=== PATIENT | female | born 1985 | race Caucasian/White ===

== ENCOUNTER 2020-05-20 06:22 | Inpatient (IN) | payer BC ==
[2020-05-20 06:58] LABS: APPEARANCE,URINE CLEAR; BILIRUBIN,URINE NEGATIVE (NEGATIVE); COLOR,URINE YELLOW; GLUCOSE, URINE NEGATIVE (NEGATIVE); KETONES,URINE NEGATIVE (NEGATIVE); LEUKOCYTE ESTERASE,URINE NEGATIVE (NEGATIVE); NITRITE,URINE NEGATIVE (NEGATIVE); PROTEIN,URINE NEGATIVE (NEGATIVE); URINE SPECIFIC GRAVITY 1.013; UROBILINOGEN,URINE NEGATIVE mg/dL (<2.0)
[2020-05-20 07:29] LABS: URINE AMPHETAMINES SCREEN NEGATIVE; URINE BARBITURATES SCREEN NEGATIVE; URINE BENZODIAZEPINES SCREEN NEGATIVE; URINE COCAINE SCREEN NEGATIVE; URINE MARIJUANA (THC) SCREEN NEGATIVE; URINE METHADONE SCREEN NEGATIVE; URINE PHENCYCLIDINE SCREEN NEGATIVE
[2020-05-20] MEDS ORDERED: RINGERS SOLUTION,LACTATED 1,000 ML IV ONE (09:02)
--- NOTE | 2020-05-20 09:15 | Admission Physical ---
Datetime Report Generated by CPN: 05/20/2020 09:14 CURRENT ADMISSION Hx Assessment: The History has been Reviewed and is Current Chief Complaint: Uterine Contractions Chief Complaint Other: Contractions every 3-4 minutes increasing in pain Admit Impression : Term, Intrauterine ; Active Labor Admit Plan: Admit to Unit; Initiate Labor Protocol ALLERGIES Medication Allergies: No Medication Allergies: No Known Allergies (06/23/2012) Latex: No Latex Allergies Food Allergies: n/a Environmental Allergies: n/a OBSTETRICAL HISTORY EDC: 05/21/2020 00:00 : 2 Para: 1 Term: 0 : 0 SAB: 0 IAB: 0 Ectopic: 0 Livin Cesareans: 0 VBACs: 0 Multiple Births: 0 Gestational Diabetes: No Rh Sensitization: No Incompetent Cervix: No MARIA ELENA: No Infertility: No ART Treatment: No Uterine Anomaly: No IUGR: No Hx Previous C/S: No Macrosomia: No Hx Loss/Stillborn: No PIH: No Hx : No Placenta Previa/Abruption: No Depression/PP Depression: Yes PTL/PROM: No Post Hemorrhage: No Current Procedures: Ultrasound Obstetrical History Comments: 06/22/2011 G2- current SEE RECORDS Alcohol: No Marijuana : No Cocaine: No Other Illicit Drugs: No Cigarettes: Never Smoker. 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, ASCUS pap INFECTIOUS HISTORY Gonorrhea: No Genital Herpes: No Chlamydia: No Tuberculosis: No Syphilis: No Hepatitis: No HIV/AIDS Exposure: No Rash or Viral Illness: No HPV: Yes PHYSICAL EXAM General: Normal HEENT: Normal Neurologic: Normal Thyroid: Normal Heart: Normal Lungs: Normal Breast: Normal Back: Normal Abdomen: Normal Genitourinary Exam: Normal Extremities: Normal DTRs: Normal Pelvic Type: Adequate Vital Signs: Reviewed; Within Normal Limits VAGINAL EXAM Dilatation: 4 Effacement: 100 Station: -1 Contraction Comments: Q 3-4 MINUTES MEMBRANES Pooling: Negative Membranes: Intact FETUS A EGA: 39.6 Monitoring: External US FHR- Baseline: 130 Variability: Moderate 6-25bpm Accelerations: 15X15 Decelerations: None FHR Category: Category I Admit Comment: at 39.6 wks EGA in active labor -Admit to LDR -NPO and IVFs: LR at 150 cc/hr after a 1 liter bolus -CEFM and [place] -GBS negative -Hx of , Plan for vaginal delivery PLANS FOR LABOR AND DELIVERY Labor and Delivery: None Pain Management: Natural Feeding Preference: Breast Benefit of Breast Feed Discussed: Yes Circumcision: Yes INFORMED CONSENT Informed Consent Obtained: Vaginal Delivery; Section Delivery; Vacuum/Forceps Assist; Risks, Benefits and Alternatives Discussed Signature: with User ID: Lula : with User ID: [email or web address]
[2020-05-20 09:40] LABS: ABSOLUTE LYMPHOCYTES (AUTO) 0.8 10^3/uL (0.5-4.7); ABSOLUTE MONOCYTES (AUTO) 0.3 10^3/uL (0.1-1.4); ABSOLUTE NEUT (AUTO) 6.1 10^3/uL (1.7-8.2); BASOPHILS % (AUTO) 0.4 % (0-2); EOSINOPHILS % (AUTO) 0.1 % (0-6); HEMATOCRIT 33.9 % (36.0-47.0); LYMPHOCYTES % (AUTO) 11.1 % (13-45); MEAN CORPUSCULAR HEMOGLOBIN 30.4 pg (27.0-33.4); MEAN CORPUSCULAR HGB CONC 35.4 g/dL (32.0-36.0); MEAN CORPUSCULAR VOLUME 86 fl (80-97); MONOCYTES % (AUTO) 3.6 % (3-13); PLATELET COUNT 170 10^3/uL (150-450); RED BLOOD COUNT 3.95 10^6/uL (3.72-5.28); RED CELL DISTRIBUTION WIDTH 14.3 % (11.5-14.0); SEGMENTED NEUTROPHILS % (AUTO) 84.8 % (42-78); TOTAL CELLS COUNTED % (AUTO) 100 %; WHITE BLOOD COUNT 7.2 10^3/uL (4.0-10.5)
[2020-05-20] MEDS ORDERED: OXYTOCIN 10 UNIT/ML VIAL ONE (09:48)
[2020-05-20] MEDS ORDERED: LIDOCAINE 1% INJ-PF (10 MG/ML) 30 ML SDV ONE (09:48)
[2020-05-20] MEDS ORDERED: MISOPROSTOL 0.2 MG TABLET ONE (09:48)
[2020-05-20] MEDS ORDERED: OXYTOCIN/0.9 % SODIUM CHLORIDE 30 UNIT/500 ML RTUINJ ONE (09:48)
[2020-05-20] MEDS ORDERED: MAGNESIUM HYDROXIDE SUSP 30 ML UDCUP PO PRN (11:57)
[2020-05-20] MEDS ORDERED: MAG HYDROX/AL HYDROX/SIMETH SUSP 30 ML UDCUP PO PRN (11:57)
[2020-05-20] MEDS ORDERED: ZOLPIDEM TARTRATE 5 MG TABLET PO PRN (11:57)
[2020-05-20] MEDS ORDERED: ACETAMINOPHEN 325 MG TABLET PO PRN (11:57)
[2020-05-20] MEDS ORDERED: GLYCERIN/WITCH HAZEL LEAF 1 EACH MED..WIPE TP PRN (11:57)
[2020-05-20] MEDS ORDERED: OXYTOCIN/0.9 % SODIUM CHLORIDE 30 UNIT/500 ML RTUINJ IV PRN (11:57)
[2020-05-20] MEDS ORDERED: DIPHENHYDRAMINE HCL 25 MG CAPSULE PO PRN (11:57)
[2020-05-20] MEDS ORDERED: BENZOCAINE/MENTHOL AEROSOL SPRAY 56 ML TOP PRN (11:57)
[2020-05-20] MEDS ORDERED: MEASLES,MUMPS&RUBELLA VACC/PF 0.5 ML VIAL SUBCUT PRN (11:57)
[2020-05-20] MEDS ORDERED: DIPH/PERTUSS(ACELL)/TETANUS VAC/PF 0.5 ML SYR (>=10YO) IM PRN (11:57)
[2020-05-20] MEDS ORDERED: VARICELLA VACC/PF (1350 UNIT/0.5 ML) 0.5 ML VIAL SUBCUT PRN (11:57)
[2020-05-20] MEDS ORDERED: FAMOTIDINE 20 MG TABLET PO PRN (11:57)
[2020-05-20] MEDS ORDERED: PSEUDOEPHEDRINE HCL 30 MG TABLET PO PRN (11:57)
[2020-05-20] MEDS ORDERED: ACETAMINOPHEN WITH CODEINE #3 TABLET PO PRN ×2 (11:57)
[2020-05-20] MEDS ORDERED: ACETAMINOPHEN 650 MG SUPP.RECT PR PRN (11:57)
[2020-05-20] MEDS ORDERED: DIBUCAINE 1% OINTMENT 28 GM TP PRN (11:57)
[2020-05-20] MEDS ORDERED: IBUPROFEN 800 MG TABLET ONE (12:00)
[2020-05-20] MEDS ORDERED: BENZOCAINE/MENTHOL AEROSOL SPRAY 56 ML ONE (12:46)
--- NOTE | 2020-05-20 14:24 | Delivery Summary ---
Del Sum A-C Datetime Report Generated by CPN: 05/20/2020 14:23 DELIVERY PERSONNEL DELIVERY PERSONNEL: [id number] Delivery Doctor:: Mona Bravo CNM Labor and Delivery Nurse:: Josette Mari RN Nursery Nurse:: Caitlyn Gamble RN Card Tender/FLATTENING MACHINE OPERATOR: Ene Sanchez, ST MATERNAL INFORMATION Delivery Anesthesia: None Medications After Delivery: Pitocin 30 Units in 500ml NS/D5W Delivery QBL: 100 Maternal Complications: None Provider Comments: Called to patients room as she was complete and +2 station. Pushed through 10-15 minutes of contractions and viable male delivered over intact perineum. After delivery of the head, the shoulders were delayed with a shoulder dystocia approximately 1 minute. Mayda and suprapubic pressure used to relieve dystocia. THe rest of the body followed easily. Cord clamping delayed for 30 seconds as infant was vigorous. After cord doubly clamped and cut the infant was placed on Mother's chest. BOth infant and Mother stable LABOR SUMMARY EDC: 05/21/2020 00:00 No. Babies in Womb: 1 Attempted: No Labor Anesthesia: None LABOR INFORMATION Reason for Induction: Not Applicable Onset of Labor: 05/20/2020 00:00 Complete Dilatation: 05/20/2020 10:21 Oxytocin: N/A Group B Beta Strep: negative Steroids Given: None Reason Steroids Not Administered: Not Applicable MEMBRANES Membranes Rupture Method: Artificial Rupture of Membranes: 05/20/2020 10:31 Length of Rupture (hr): 1.18 Amniotic Fluid Color: Clear Amniotic Fluid Amount: Small Amniotic Fluid Odor: Normal STAGES OF LABOR Stage 1 hr: 10 Stage 1 min: 21 Stage 2 hr: 1 Stage 2 min: 21 Stage 3 hr: 0 Stage 3 min: 5 Total Time in Labor hr: 11 Total Time in Labor min: 47 VAGINAL DELIVERY Episiotomy: None Laceration #1: None Laceration Repair: Not Applicable Sponge Count Correct: Yes Sharps Count Correct: Yes CSECTION DELIVERY Primary Indication: N/A Secondary Indication: N/A CSection Incidence: N/A Labor: N/A Elective: N/A CSection Incision: N/A BABY A INFORMATION Infant Delivery Date/Time: 05/20/2020 11:42 Method of Delivery: Vaginal Nurse Controlled Delivery: No Born in Route : No : N/A Forceps: N/A Vacuum Extraction: N/A Shoulder Dystocia : Yes SHOULDER DYSTOCIA BABY A Delivery of Head: 05/20/2020 11:41 Time Head to Delivery : 1.0 1st Intervention to Resolve: Gentle Attempt at Traction, Assisted by Maternal Expulsive Efforts 2nd Intervention to Resolve: McRobert's Maneuver 3rd Intervention to Resolve: Suprapubic Pressure Verify NO Fundal Pressure: No Fundal Pressure Applied Arm Under Symphisis at Del: Right PRESENTATION/POSITION BABY A Presentation: Cephalic Cephalic Presentation: Vertex Vertex Position: Left Occipital Anterior Breech Presentation: N/A PLACENTA INFORMATION BABY A Placenta Delivery Time : 05/20/2020 11:47 Placenta Method of Delivery: Spontaneous Placenta Status: Delivered SCORES BABY A Heart Rate 1 min: >100 bpm Resp Effort 1 min: Slow, Irregular Reflex Irritability 1 min: Cough or Sneeze or Pulls Away Muscle Tone 1 min: Active Motion Color 1 min: Blue/Pale Resuscitation Effort 1 min: Tactile Stimulation SCORE 1 MIN: 7 Heart Rate 5 min: >100 bpm Resp Effort 5 min: Slow, Irregular Reflex Irritability 5 min: Cough or Sneeze or Pulls Away Muscle Tone 5 min: Active Motion Color 5 min: Body Price, Extremities Blue Resuscitation Effort 5 min: Tactile Stimulation; Oxygen SCORE 5 MIN: 8 INFANT INFORMATION BABY A Gestational Age at Delivery: 39.6 Gestational Status: Full Term- 39- 40.6 Weeks Infant Outcome : Liveborn Infant Condition : Stable Infant Sex: Male IDENTIFICATION BABY A Infant Verification Date/Time: 05/20/2020 12:15 ID Band Number: [id number] Mother's Name Verified: Yes Infant RN Verifying Infant: Mukesh Duran RN Additional Verifying Personnel: Alejandro Mari RN WEIGHT/LENGTH BABY A Birthweight (gm): 3782 Infant Weight (lb): 8 Infant Weight (oz): 5 Infant Length (in): 21.00 Length (cm): 53.34 CORD INFORMATION BABY A No. Cord Vessels: 3 Nuchal Cord : N/A Cord Blood Taken: Yes-For Storage (Mom's Blood type +) Suction: Mouth; Nose ASSESSMENT BABY A Complications: Shoulder Dystocia Physical Findings at Delivery: Bruising Physical Findings- Other: facial bruising Infant Respirations: Appears Normal; Sternal Retractions Skin to Skin: Yes Skin to Skin Time (min): 120 Fiberglass Pipe Covering Supervisor/ALS Called : No Care By: Kayleigh Morgan RN Transferred To: Remains with Mother BABY B INFORMATION : N/A SIGNATURES Signature: with User ID: Lame : with User ID: Lula
--- NOTE | 2020-05-20 14:24 | Birth Certificate Data ---
Cert Data Datetime Report Generated by CPN: 05/20/2020 14:23 CERTIFICATE DATA Delivery Provider: Mona Bravo CNM (05/20/2020 07:07:Josette Mari RN) 47a. Care: Yes (05/20/2020 07:07:Josette Mari RN) 47b. Date of First Visit: 11/28/2019 00:00 (05/20/2020 07:07:Josette Mari RN) 47c. Date of Last Visit: 05/13/2020 00:00 (05/20/2020 07:07:Josette Mari RN) 47d. Number of Visits: 9 (05/20/2020 07:07:Josette Mari RN) 48a. Number of Prev Live Births: 1 (05/20/2020 07:07:Josette Mari RN) 48b. Now Livin (05/20/2020 07:07:Josette Mari RN) 48c. Live Births Now : 0 (05/20/2020 07:07:QS system process) 48d. Date of Last Live : 06/22/2012 00:00 (05/20/2020 07:07:Josette Mari RN) 48e. Losses: 0 (05/20/2020 07:07:Josette Mari RN) RISK FACTORS IN THIS 49a. Diabetes: No (05/20/2020 07:07:Josette Mari RN) 49b. Hypertension: No (05/20/2020 07:07:Josette Mari RN) 49c. Previous Births: 0 (05/20/2020 07:07:Josette Mari RN) 49d. Stillborns: No (05/20/2020 07:07:Josette Mari RN) 49d. IUGR: No (05/20/2020 07:07:Josette Mari RN) 49e. Infertility Treatment: No (05/20/2020 07:07:Josette Mari RN) 49f. Previous Cesareans: 0 (05/20/2020 07:07:Josette Mari RN) Mother's Height 50b. Height Inches: 66 (05/20/2020 14:15:QS system process) Mother's Weight 51a. Pre- Weight (lbs): 150 (05/20/2020 07:07:Josette Mari RN) 51b. Weight at Delivery (lbs): 169 (05/20/2020 14:15:QS system process) Infections Present/Treated 53a. Gonorrhea: No (05/20/2020 07:07:Josette Mari RN) Results this Hospital Visit : Negative (05/20/2020 07:07:Josette Mari RN) 53b. Syphilis: No (05/20/2020 07:07:Josette Mari RN) 53c. Chlamydia: No (05/20/2020 07:07:Josette Mari RN) Results this Hospital Visit: Negative (05/20/2020 07:07:Josette Mari RN) 53d. Hepatitis B: No (05/20/2020 07:07:Josette Mari RN) Results this Hospital Visit: Negative (05/20/2020 07:07:Josette Mari RN) 53e. Hepatitis C: Negative (05/20/2020 07:07:Josette Mari RN) 53h. Mother Tested for HBsAG: Yes (Annotations: Data stored by Angy on behalf of user) (05/20/2020 07:07:Josette Mari RN) 53j. Test Result: Negative (05/20/2020 07:07:Josette Mari RN) Obstetric Procedures 54a, b, c. Obstetric Procedures: Ultrasound (05/20/2020 07:07:Josette Mari RN) Cigarette Smoking Cigarette Smoking: Never Smoker. [id number] (05/20/2020 07:07:Josette Mari RN) Onset of Labor 56a. PROM >12 Hrs: 1.18 (05/20/2020 07:07:QS system process) 56b. Precipitous Labor <3 Hrs: 11 (05/20/2020 07:07:QS system process) 56c. Prolonged Labor > 20 Hrs: 11 (05/20/2020 07:07:QS system process) 57a. Induction of Labor: N/A (05/20/2020 07:07:Josette Mari RN) 57c. Non-Vertex Presentation A: Vertex (05/20/2020 07:07:Josette Mari RN) 57d. Steroids - Lung Mat: None (05/20/2020 07:07:Josette Mari RN) 57d. Steroids - Lung Mat: Not Applicable (05/20/2020 07:07:Josette Mari RN) 57g. Moderate/Heavy Meconium: Clear (05/20/2020 10:30:Josette Mari RN) 57h. Intolerance of Labor: N/A (05/20/2020 07:07:Josette Mari RN) : N/A (05/20/2020 07:07:Josette Mari RN) 57i. Epidural/Spinal Anesthesia: None (05/20/2020 07:07:Josette Mari RN) Method of Delivery 58a. Forceps - Unsuccessful A: N/A (05/20/2020 07:07:Josette Mari RN) 58b. Vacuum - Unsuccessful A: N/A (05/20/2020 07:07:Josette Mari RN) 58c. Presentation at 58c. Presentation at - A : Vertex (05/20/2020 07:07:Josette Mari RN) 58c. Presentation at - A : N/A (05/20/2020 07:07:Josette Mari RN) 58c. Presentation at - A : Cephalic (05/20/2020 07:07:Josette Mari RN) Final Route and Method of Del 58d. Baby A Route/Delivery: Vaginal (05/20/2020 11:42:Josette Mari RN) 58e. Trial of Labor Attempted: No (05/20/2020 07:07:Josette Mari RN) 58e. Trial of Labor Attempted A: N/A (05/20/2020 07:07:Josette Mari RN) 58e. Trial of Labor Attempted B: N/A (05/20/2020 07:07:Josette Mari RN) Maternal Morbidity 59b. 3rd or 4th Degree Lacs: None (05/20/2020 07:07:Loretta Licona MD) 59b. 3rd or 4th Degree Lacs: N/A (05/20/2020 07:07:Josette Mari RN) Birthweight Baby A: 3782 (05/20/2020 07:07:Josette Mari RN) 60a. Pounds : 8 (05/20/2020 07:07:QS system process) 60b. Ounces: 5 (05/20/2020 07:07:QS system process) 61. GA at Delivery Baby A: 39.6 (05/20/2020 07:07:Josette Mari RN) : Full Term- 39- 40.6 Weeks (05/20/2020 07:07:QS system process) 62a. 5 Minute Baby A: 8 (05/20/2020 07:07:QS system process)
[2020-05-20] MEDS: FERROUS SULFATE 325 MG TABLET PO SCH (18:21)
[2020-05-20] MEDS: DOCUSATE SODIUM 100 MG CAPSULE PO SCH (18:22)
[2020-05-20] MEDS: IBUPROFEN 800 MG TABLET PO SCH ×2 (18:22→21:36)
[2020-05-21] MEDS: IBUPROFEN 800 MG TABLET PO SCH ×2 (06:54→13:04)
[2020-05-21 08:58] LABS: HEMATOCRIT 31.4 % (36.0-47.0); HEMOGLOBIN 11.1 g/dL (12.0-15.5); MEAN CORPUSCULAR HEMOGLOBIN 30.9 pg (27.0-33.4); MEAN CORPUSCULAR HGB CONC 35.4 g/dL (32.0-36.0); MEAN CORPUSCULAR VOLUME 87 fl (80-97); PLATELET COUNT 137 10^3/uL (150-450); RED CELL DISTRIBUTION WIDTH 14.4 % (11.5-14.0); WHITE BLOOD COUNT 9.1 10^3/uL (4.0-10.5)
[2020-05-21] MEDS: DOCUSATE SODIUM 100 MG CAPSULE PO SCH (09:14)
[2020-05-21] MEDS: FERROUS SULFATE 325 MG TABLET PO SCH (09:14)
[2020-05-21 09:16] VITALS: BP 109/70
--- NOTE | 2020-05-21 09:54 | PDOC PROGRESS REPORT ---
Subjective-OB Progress Note for:: 05/21/20 Subjective: Pt doing well, no concerns. She reports light bleeding, reg diet and voiding w/o difficulty. She would like to go home today. Physical Exam (OB) Vital Signs: Temp Pulse Resp BP Pulse Ox 98.4 F 56 L 20 109/70 100 05/21/20 07:37 05/21/20 07:37 05/21/20 07:37 05/21/20 07:37 05/21/20 07:37 Intake & Output 05/20/20 05/21/20 05/22/20 06:59 06:59 06:59 Intake Total 500 Output Total 1325 Balance -825 Weight 76.6 kg - General General Appearance: Appears well - Maternal Morbidity 59. Maternal Morbidity (serious complications experinced by the mother associated with labor and delivery: None of the above - Lochia Lochia Amount: Scant < 10 ml Lochia Color: Rubra/Red - Abdomen Description: Firm, Soft Hernia Present: No Fundal Description: Firm, Midline Fundal Height: u/u - u/2 Objective-Diagnostic Laboratory: 05/21/20 07:55 05/20/20 05/21/20 09:22 07:55 WBC 9.1 RBC 3.60 L Hgb 11.1 L Hct 31.4 L MCV 87 MCH 30.9 MCHC 35.4 RDW 14.4 H Plt Count 137 L Blood Type A POSITIVE Antibody Screen NEGATIVE Assessment and Plan(PN) - Assessment and Plan (1) Vaginal delivery Is this a current diagnosis for this admission?: Yes - Time Spent with Patient Time with patient: Less than 15 minutes Medications reviewed and adjusted accordingly: Yes - Disposition Anticipated Discharge Disposition: Home, Self Care Anticipated Discharge Timeframe: within 24 hours
--- NOTE | 2020-05-21 09:56 | PDOC DISCHARGE SUMMARY ---
Impression - Admit/DC Date/PCP Admission Date/Primary Care Provider: 05/20/20 09:10 FELISA WILL MD Discharge Date: 05/21/20 - Discharge Diagnosis (1) Vaginal delivery Is this a current diagnosis for this admission?: Yes - Additional Information Resuscitation Status: Full Code Discharge Diet: Regular Discharge Activity: Balance Activity w/Rest, Pelvic Rest Referrals: FELISA WILL MD [Primary Care Provider] - Prescriptions: Ibuprofen [Motrin 800 mg Tablet] 800 mg PO Q8HP PRN #60 tablet PRN Reason: Home Medications: Pnv W-O Ca No5/Fe Fumarate/FA [-U Multiple Vitamin Capsule] 1 tab PO DAILY 06/22/12 Ibuprofen [Motrin 800 mg Tablet] 800 mg PO Q8HP PRN #60 tablet 05/21/20 HPI Reason(s) for Admission: Onset of Labor Procedures: NST Intrapartum Procedure(s): Spontaneous Vaginal Delivery Hospital Course 59. Maternal Morbidity (serious complications experinced by the mother associated with labor and delivery: None of the above Results Laboratory Results: WBC 9.1 10^3/uL (4.0-10.5) 05/21/20 07:55 RBC 3.60 10^6/uL (3.72-5.28) L 05/21/20 07:55 Hgb 11.1 g/dL (12.0-15.5) L 05/21/20 07:55 Hct 31.4 % (36.0-47.0) L 05/21/20 07:55 MCV 87 fl (80-97) 05/21/20 07:55 MCH 30.9 pg (27.0-33.4) 05/21/20 07:55 MCHC 35.4 g/dL (32.0-36.0) 05/21/20 07:55 RDW 14.4 % (11.5-14.0) H 05/21/20 07:55 Plt Count 137 10^3/uL (150-450) L 05/21/20 07:55 Lymph % (Auto) 11.1 % (13-45) L 05/20/20 09:22 [place] % (Auto) 3.6 % (3-13) 05/20/20 09:22 Eos % (Auto) 0.1 % (0-6) 05/20/20 09:22 Baso % (Auto) 0.4 % (0-2) 05/20/20 09:22 Absolute Neuts (auto) 6.1 10^3/uL (1.7-8.2) 05/20/20 09:22 Absolute Lymphs (auto) 0.8 10^3/uL (0.5-4.7) 05/20/20 09:22 Absolute Monos (auto) 0.3 10^3/uL (0.1-1.4) 05/20/20 09:22 Absolute Eos (auto) 0.0 10^3/uL (0.0-0.6) 05/20/20 09:22 Absolute Basos (auto) 0.0 10^3/uL (0.0-0.2) 05/20/20 09:22 Seg Neutrophils % 84.8 % (42-78) H 05/20/20 09:22 Urine Color YELLOW 05/20/20 06:30 Urine Appearance CLEAR 05/20/20 06:30 Urine pH 7.0 (5.0-9.0) 05/20/20 06:30 Ur Specific [place] 1.013 05/20/20 06:30 Urine Protein NEGATIVE mg/dL (NEGATIVE) 05/20/20 06:30 Urine Glucose (UA) NEGATIVE mg/dL (NEGATIVE) 05/20/20 06:30 Urine Ketones NEGATIVE mg/dL (NEGATIVE) 05/20/20 06:30 Urine Blood SMALL (NEGATIVE) H 05/20/20 06:30 Urine Nitrite NEGATIVE (NEGATIVE) 05/20/20 06:30 Urine Bilirubin NEGATIVE (NEGATIVE) 05/20/20 06:30 Urine Urobilinogen NEGATIVE mg/dL (<2.0) 05/20/20 06:30 Ur Leukocyte Esterase NEGATIVE (NEGATIVE) 05/20/20 06:30 Urine Ascorbic Acid NEGATIVE (NEGATIVE) 05/20/20 06:30 Urine Opiates Screen NEGATIVE 05/20/20 06:30 Urine Methadone Screen NEGATIVE 05/20/20 06:30 Ur Barbiturates Screen NEGATIVE 05/20/20 06:30 Ur Phencyclidine Scrn NEGATIVE 05/20/20 06:30 Ur Amphetamines Screen NEGATIVE 05/20/20 06:30 U Benzodiazepines Scrn NEGATIVE 05/20/20 06:30 Urine Cocaine Screen NEGATIVE 05/20/20 06:30 U Marijuana (THC) Screen NEGATIVE 05/20/20 06:30 RPR NONREACTIVE (NONREACTIVE) 05/20/20 09:22 Blood Type A POSITIVE 05/20/20 09:22 Antibody Screen NEGATIVE 05/20/20 09:22 Plan Plan of Treatment: home, f/u 4 wks at [facility] Time Spent: Less than 30 Minutes
[2020-05-21] MEDS ORDERED: SENNOSIDES/DOCUSATE 8.6-50 MG 1 EACH TABLET PO SCH (10:00)
[2020-05-21] MEDS ORDERED: PRENATAL VITAMIN W DHA CAPSULE PO SCH (10:00)
== END 2020-05-21 15:40 | disposition home or self-care (01) | DRG 807 ==
LOC: LC 06:22 → LR 09:10 → 2N 15:17
PROVIDERS: ADMIT Obstetrics & Gynecology; ATTEND Obstetrics & Gynecology
PROC: 10E0XZZ Delivery of Products of Conception, External Approach (ICD-10-PCS; principal; 2020-05-20)
DX: O66.0 Obstructed labor due to shoulder dystocia (principal); Z37.0 Single live birth; Z3A.39 39 weeks gestation of pregnancy; Z85.818 Personal history of malignant neoplasm of other sites of lip, oral cavity, and pharynx
CPT/HCPCS: 36415; 80307; 81005; 85025; 85027; 86592; 86850; 86900; 86901; 94760; J2590; J3490